=== PATIENT | female | born 1935 | race Caucasian/White ===

== ENCOUNTER 2018-07-18 03:31 | Emergency (ER) | payer MEDICARE ==
[2018-07-18] MEDS ORDERED: Metoclopramide HCl 10 MG/2 ML VIAL ONE (04:56)
[2018-07-18] MEDS ORDERED: Morphine 10 MG/ML VIAL ONE (04:56)
[2018-07-18 05:02] LABS: #Basophils 0.1 thou/uL (0.0-0.2); #Lymphocytes 1.9 thou/uL (1.20-3.40); #Monocytes 0.6 thou/uL (0.11-0.59); %Basophils 0.5 % (0.0-1.0); %Eosinophils 0.1 % (0.0-10.0); %Lymphocytes 13.3 % (21.0-51.0); %Monocytes 3.8 % (0.0-10.0); %Neutrophils 82.4 % (42.0-75.0); Mean Corpuscular HGB CONC 32.7 g/dL (32.0-36.0); Mean Corpuscular Hemoglobin 28.1 pg (27.0-31.0); Mean Corpuscular Volume 86.1 fL (78.0-98.0); Mean Platelet Volume 6.1 fL (7.4-10.4); Platelet Count 368 thou/uL (130-400); RBC Distribution Width 13.4 % (11.5-14.5); Red Blood Cell (RBC) Count 4.97 mill/uL (4.20-5.40); White Blood Cell (WBC) Count 14.6 thou/uL (4.8-10.8)
[2018-07-18 05:08] LABS: INR-International Normal Ratio 1.1; Prothrombin Time 14.2 SEC (12.0-14.7)
[2018-07-18 05:25] LABS: ALT (SGPT) 16 U/L (8-55); AST (SGOT) 18 U/L (5-34); Albumin 4.5 g/dL (3.4-4.8); Alkaline Phosphatase 52 U/L (40-150); Anion Gap 22 mmol/L (10-20); BUN (Urea Nitrogen) 21 mg/dL (9.8-20.1); Calc. Creatinine Clearance 0 mL/min (70-130); Calcium 10.3 mg/dL (7.8-10.44); Carbon Dioxide 21 mmol/L (23-31); Chloride 98 mmol/L (98-107); Estimated GFR-MDRD 67; Glucose 175 mg/dL (83-110); Potassium 3.9 mmol/L (3.5-5.1); Protein, Total 8.5 g/dL (6.0-8.3); Sodium 137 mmol/L (136-145)
[2018-07-18] MEDS ORDERED: Prochlorperazine 10 MG/2 ML VIAL ONE (06:09)
[2018-07-18] MEDS ORDERED: Proparacaine 0.5% Opth 15 ML BOT ONE (06:26)
[2018-07-18] MEDS ORDERED: acetaZOLAMIDE Sodium 500 mg Vial ONE (06:55)
[2018-07-18] MEDS ORDERED: TIMOLOL EYE DROP R EYE SCH (07:00)
[2018-07-18] MEDS ORDERED: APRACLONIDINE R EYE SCH (07:00)
[2018-07-18] MEDS ORDERED: Pilocarpine 2% Ophth Drops 15 ML BOT R EYE SCH (07:00)
[2018-07-18] MEDS ORDERED: ACETAZOLAMIDE 500 MG PO SCH (07:00)
[2018-07-18] MEDS ORDERED: Timolol 0.5% Ophth Soln 5 ml Bottle ONE (07:03)
[2018-07-18] MEDS ORDERED: Morphine 4 MG/ML VIAL ONE (07:23)
--- NOTE | 2018-07-18 07:45 | RAD ---
SINGLE VIEW CHEST: Date: 07/17/18 COMPARISON: 07/22/10. HISTORY: Headache, dizziness, vomiting. FINDINGS: Single view of the chest shows a normal sized cardiomediastinal silhouette. There is no evidence of c onsolidation, mass, or pleural effusion. The bones are unremarkable. IMPRESSION: No evidence of acute cardiopulmonary disease. POS: [facility]
--- NOTE | 2018-07-18 09:20 | CT ---
PRELIMINARY REPORT/[facility]/EMERGENTY AFTER-HOURS PROCEDURE CT Head Without Intravenous Contrast EXAM DATE/TIME: 07/18/2018 4:39 AM CLINICAL HISTORY: 83 years old, female; Pain; Headache; Headache not specified; Patient HX: Since yesterday patient has had vomitting, dizziness, blood pressure is high at the time of her er visit; Additional info: None available. TECHNIQUE: Axial computed tomography images of the head/brain without intravenous contrast. All CT scans at this facility use at least one of these dose optimization techniques: automated expos ure control; mA and/or kV adjustment per patient size (includes targeted exams where dose is matched to clinical indication); or iterative reconstruction. COMPARISON: No relevant prior studies available. FINDINGS: Brain: Normal. No hemorrhage. No significant white matter disease. No edema. Ventricles: Normal. No ventriculomegaly. Bones/joints: Normal. No acute fracture. Sinuses: Normal as visualized. No acute sinusitis. Mastoid air cells: Normal as visualized. No mastoid effusion. Soft tissues: Normal. IMPRESSION: No acute intracranial hemorrhage. Thank you for allowing us to participate in the care of your patient. Dictated and Authenticated by: Júnior De Anda MD 07/18/2018 5:36 AM Central Time ([place] & [place]) FINAL REPORT EMERGENCY AFTER HOURS CT BRAIN WITHOUT CONTRAST: Date: 07/18/18 FINDINGS/IMPRESSION: I agree with the findings and impression given in the preliminary report per [facility] physician. No evide nce of acute intracranial abnormality. POS: [facility]
== END 2018-07-18 09:50 | disposition short-term general hospital (02) ==
LOC: MADERS 03:31
DX: H40.211 Acute angle-closure glaucoma, right eye (principal); I10 Essential (primary) hypertension; M19.90 Unspecified osteoarthritis, unspecified site; E03.9 Hypothyroidism, unspecified; Z79.899 Other long term (current) drug therapy
CPT/HCPCS: 36415; 70450; 71045; 80053; 84484; 85025; 85610; 93005; 96361; 96365; 96375; 96376; J0780; J1120; J2270; J2765

== ENCOUNTER 2022-08-07 17:14 | Emergency (ER) | payer MEDICARE, OTHER ==
[~2022-08-07 17:14] MED LIST: Iopamidol 370 76% 125 ML VIAL FS ONE; Sodium Chloride 0.9% 100 ML BAG ONE
[2022-08-07] MEDS ORDERED: Dexamethasone 4 MG TAB ONE (18:21)
[2022-08-07] MEDS ORDERED: Meclizine HCl 25 MG TAB ONE (18:21)
[2022-08-07] MEDS ORDERED: Dexamethasone 10 MG/ML VIAL ONE (18:22)
[2022-08-07 18:35] LABS: #Basophils 0.1 thou/uL (0.0-0.2); #Lymphocytes 1.2 thou/uL (1.20-3.40); #Monocytes 0.9 thou/uL (0.11-0.59); #Neutrophils 15.9 thou/uL (1.40-6.50); %Basophils 0.4 % (0.0-1.0); %Lymphocytes 6.8 % (21.0-51.0); %Monocytes 4.8 % (0.0-10.0); %Neutrophils 88.1 % (42.0-75.0); Hemoglobin 13.1 g/dL (12.0-16.0); Mean Corpuscular HGB CONC 32.9 g/dL (32.0-36.0); Mean Corpuscular Hemoglobin 28.6 pg (27.0-31.0); Mean Corpuscular Volume 86.9 fl (78.0-98.0); Mean Platelet Volume 6.4 fL (7.4-10.4); Platelet Count 357 10x3/uL (130-400); RBC Distribution Width 12.6 % (11.5-14.5)
[2022-08-07 18:49] LABS: ALT (SGPT) 10 U/L (8-55); AST (SGOT) 16 U/L (5-34); Albumin 3.7 g/dL (3.4-4.8); Alkaline Phosphatase 58 U/L (40-110); Anion Gap 17 mmol/L (10-20); BUN (Urea Nitrogen) 18 mg/dL (9.8-20.1); Bilirubin, Total 0.8 mg/dL (0.2-1.2); Calc. Creatinine Clearance 0 mL/min (70-130); Calcium 9.3 mg/dL (7.8-10.44); Carbon Dioxide 24 mmol/L (23-31); Chloride 103 mmol/L (98-107); Estimated GFR 78; Globulin 3.8 g/dL (2.4-3.5); Glucose 144 mg/dL (83-110); Potassium 4.2 mmol/L (3.5-5.1); Protein, Total 7.5 g/dL (5.8-8.1); Sodium 140 mmol/L (136-145)
[2022-08-07] MEDS ORDERED: cefTRIAXone\\ROCEPHIN 2 GM VIAL ONE (19:31)
[2022-08-07 19:57] LABS: INR-International Normal Ratio 1.2; Prothrombin Time 15.2 sec (12.0-14.7)
[2022-08-07 20:15] LABS: Bilirubin Negative (Negative); Blood, Urine Moderate (Negative); Glucose, Urine (Dipstick) Negative (Negative); Ketone, Urine Trace mg/dL (Negative); Leukocyte Small (Negative); Nitrite Negative (Negative); Protein, Urine (Dipstick) 100 mg/dL (Neg-Trace); Urobilinogen 0.2 mg/dL (Less than 2)
[2022-08-07 20:19] LABS: Bacteria/HPF 3+ HPF (None Seen); Clarity Cloudy (Clear); Specific Gravity, Urine 1.025 (1.002-1.036)
[2022-08-07] MEDS ORDERED: Aspirin Chewable 81 MG TAB ONE (21:21)
[2022-08-07] MEDS ORDERED: Sodium Chloride 0.9% 2,000 ML ONE (21:21)
[2022-08-07 21:59] LABS: Lactic Acid 2.2 mmol/L (0.5-2.2)
== END 2022-08-08 01:37 | disposition short-term general hospital (02) ==
LOC: MADERS 17:14
DX: A41.9 Sepsis, unspecified organism (principal); I63.9 Cerebral infarction, unspecified; I10 Essential (primary) hypertension; E87.20 Acidosis, unspecified; N39.0 Urinary tract infection, site not specified; E03.9 Hypothyroidism, unspecified; Z79.899 Other long term (current) drug therapy
CPT/HCPCS: 36415; 70450; 70496; 70498; 71045; 80053; 81003; 81015; 82550; 83605; 84484; 85025; 85610; 85730; 87040; 87149; 93005; 96361; 96365; J0696; J1100; J3490; J7050; J8540; Q9967

== ENCOUNTER 2022-08-12 16:22 | Inpatient (IN) | payer MEDICARE ==
[2022-08-12] MEDS ORDERED: hydrALAZINE 25 MG TAB PO SCH (22:30)
[2022-08-12] MEDS ORDERED: Oxybutynin 5 MG TAB PO SCH (22:30)
[2022-08-12] MEDS ORDERED: Famotidine 20 MG TAB PO SCH (22:30)
[2022-08-12] MEDS ORDERED: Atorvastatin Calcium 40 MG TAB PO SCH (22:30)
[2022-08-12] MEDS ORDERED: Metoprolol Tartrate 50 MG TAB PO SCH (22:30)
[2022-08-12] MEDS: metroNIDAZOLE 250 MG TAB PO SCH (22:43)
[2022-08-12] MEDS: Acetaminophen 325 MG TAB PO PRN (22:44)
[2022-08-12] MEDS: Ondansetron ODT 4 MG TAB PO PRN (22:56)
[2022-08-12 23:16] VITALS: BMI 22.8
[2022-08-13] MEDS: Ondansetron ODT 4 MG TAB PO PRN ×2 (05:49→13:57)
[2022-08-13] MEDS: metroNIDAZOLE 250 MG TAB PO SCH ×3 (05:49→22:25)
[2022-08-13 05:58] LABS: ALT (SGPT) 17 U/L (8-55); AST (SGOT) 21 U/L (5-34); Albumin 3.1 g/dL (3.4-4.8); Alkaline Phosphatase 41 U/L (40-110); Anion Gap 13 mmol/L (10-20); BUN (Urea Nitrogen) 16 mg/dL (9.8-20.1); Bilirubin, Total 0.8 mg/dL (0.2-1.2); Calc. Creatinine Clearance 54 mL/min (70-130); Calcium 8.7 mg/dL (7.8-10.44); Carbon Dioxide 25 mmol/L (23-31); Chloride 102 mmol/L (98-107); Estimated GFR 79; Globulin 3.2 g/dL (2.4-3.5); Glucose 98 mg/dL (83-110); Potassium 3.9 mmol/L (3.5-5.1); Protein, Total 6.3 g/dL (5.8-8.1); Sodium 136 mmol/L (136-145)
[2022-08-13] MEDS ORDERED: Thyroid 30 MG TAB PO SCH ×2 (08:15→09:00)
[2022-08-13] MEDS: hydrALAZINE 25 MG TAB PO SCH ×4 (08:57→20:32)
[2022-08-13] MEDS: Famotidine 20 MG TAB PO SCH ×2 (08:58→20:32)
[2022-08-13] MEDS: Metoprolol Tartrate 50 MG TAB PO SCH ×2 (08:58→20:31)
[2022-08-13] MEDS: Aspirin Chewable 81 MG TAB PO SCH (08:59)
[2022-08-13] MEDS: Lisinopril 20 MG TAB PO SCH (08:59)
[2022-08-13] MEDS ORDERED: Oxybutynin 5 MG TAB PO SCH (09:00)
[2022-08-13] MEDS: Hydrochlorothiazide 25 MG TAB PO SCH (09:01)
[2022-08-13] MEDS ORDERED: Milk Of Magnesia 30 ML UDCUP PO PRN (09:35)
[2022-08-13] MEDS ORDERED: Meclizine HCl 25 MG TAB PO PRN (09:35)
[2022-08-13] MEDS ORDERED: Lantiseptic Ointment 130 GM JAR TOP SCH (09:45)
[2022-08-13] MEDS ORDERED: Meclizine HCl 25 MG TAB PO SCH (11:00)
[2022-08-13] MEDS: Meclizine HCl 25 MG TAB PO SCH ×2 (13:57→22:25)
[2022-08-13] MEDS: Acetaminophen 325 MG TAB PO PRN (17:03)
[2022-08-13] MEDS: Atorvastatin Calcium 40 MG TAB PO SCH (20:32)
[2022-08-13] MEDS: Lantiseptic Ointment 130 GM JAR TOP SCH (20:33)
[2022-08-14 05:29] LABS: #Basophils 0.2 thou/uL (0.0-0.2); #Eosinphils 0.6 thou/uL (0.0-0.7); #Lymphocytes 2.4 thou/uL (1.20-3.40); #Monocytes 1.4 thou/uL (0.11-0.59); #Neutrophils 10.5 thou/uL (1.40-6.50); %Basophils 1.2 % (0.0-1.0); %Eosinophils 3.9 % (0.0-10.0); %Lymphocytes 16.1 % (21.0-51.0); %Monocytes 9.4 % (0.0-10.0); %Neutrophils 69.4 % (42.0-75.0); Hemoglobin 13.9 g/dL (12.0-16.0); Mean Corpuscular HGB CONC 33.8 g/dL (32.0-36.0); Mean Corpuscular Volume 85.9 fl (78.0-98.0); Mean Platelet Volume 6.3 fL (7.4-10.4); Platelet Count 390 10x3/uL (130-400); RBC Distribution Width 12.9 % (11.5-14.5); White Blood Cell (WBC) Count 15.2 10x3/uL (4.8-10.8)
[2022-08-14] MEDS: Thyroid 30 MG TAB PO SCH (05:29)
[2022-08-14] MEDS: Meclizine HCl 25 MG TAB PO SCH ×3 (05:30→21:09)
[2022-08-14] MEDS: metroNIDAZOLE 250 MG TAB PO SCH ×3 (05:31→21:08)
[2022-08-14 05:50] LABS: ALT (SGPT) 21 U/L (8-55); AST (SGOT) 30 U/L (5-34); Albumin 3.3 g/dL (3.4-4.8); Alkaline Phosphatase 45 U/L (40-110); Anion Gap 15 mmol/L (10-20); BUN (Urea Nitrogen) 14 mg/dL (9.8-20.1); Bilirubin, Total 0.7 mg/dL (0.2-1.2); Calc. Creatinine Clearance 56 mL/min (70-130); Calcium 9.1 mg/dL (7.8-10.44); Carbon Dioxide 22 mmol/L (23-31); Chloride 101 mmol/L (98-107); Estimated GFR 82; Globulin 3.3 g/dL (2.4-3.5); Glucose 96 mg/dL (83-110); Potassium 3.9 mmol/L (3.5-5.1); Protein, Total 6.6 g/dL (5.8-8.1); Sodium 134 mmol/L (136-145)
[2022-08-14] MEDS: Ondansetron ODT 4 MG TAB PO PRN (07:33)
[2022-08-14] MEDS: hydrALAZINE 25 MG TAB PO SCH (07:33)
[2022-08-14] MEDS: Famotidine 20 MG TAB PO SCH ×2 (07:33→21:09)
[2022-08-14] MEDS: Lisinopril 20 MG TAB PO SCH (07:33)
[2022-08-14] MEDS: Metoprolol Tartrate 50 MG TAB PO SCH ×2 (07:34→21:09)
[2022-08-14] MEDS: Aspirin Chewable 81 MG TAB PO SCH (07:34)
[2022-08-14] MEDS: Hydrochlorothiazide 25 MG TAB PO SCH (07:34)
[2022-08-14] MEDS: Lantiseptic Ointment 130 GM JAR TOP SCH ×2 (07:35→21:10)
[2022-08-14] MEDS: Acetaminophen 325 MG TAB PO PRN (07:57)
[2022-08-14 08:57] LABS: RBC/HPF 0-3 HPF (0-3)
[2022-08-14 08:58] LABS: Bacteria/HPF Rare-Few HPF (None Seen); Squamous Epithelial 0-3 HPF (0-3)
[2022-08-14] MEDS ORDERED: Thyroid 30 MG TAB PO SCH (09:00)
[2022-08-14] MEDS: Nystatin 500,000 UNITS/5 ML UDCUP SSP SCH ×3 (13:55→21:08)
[2022-08-14] MEDS: Atorvastatin Calcium 40 MG TAB PO SCH (21:08)
[2022-08-15] MEDS: Meclizine HCl 25 MG TAB PO SCH ×3 (05:30→21:08)
[2022-08-15] MEDS: metroNIDAZOLE 250 MG TAB PO SCH (05:34)
[2022-08-15] MEDS: Thyroid 30 MG TAB PO SCH (05:36)
[2022-08-15] MEDS: Aspirin Chewable 81 MG TAB PO SCH (08:45)
[2022-08-15] MEDS: Famotidine 20 MG TAB PO SCH ×2 (08:46→21:12)
[2022-08-15] MEDS: hydrALAZINE 25 MG TAB PO SCH ×2 (08:46→21:12)
[2022-08-15] MEDS: Lisinopril 20 MG TAB PO SCH (08:47)
[2022-08-15] MEDS: Hydrochlorothiazide 25 MG TAB PO SCH (08:47)
[2022-08-15] MEDS: Metoprolol Tartrate 50 MG TAB PO SCH ×2 (08:48→21:10)
[2022-08-15] MEDS: Nystatin 500,000 UNITS/5 ML UDCUP SSP SCH ×4 (08:49→21:13)
[2022-08-15] MEDS: Lantiseptic Ointment 130 GM JAR TOP SCH ×2 (08:50→21:13)
[2022-08-15] MEDS: Acetaminophen 325 MG TAB PO PRN (11:47)
[2022-08-15] MEDS: Atorvastatin Calcium 40 MG TAB PO SCH (20:48)
[2022-08-16] MEDS: Meclizine HCl 25 MG TAB PO SCH ×3 (06:16→23:49)
[2022-08-16] MEDS: Thyroid 30 MG TAB PO SCH (06:17)
[2022-08-16] MEDS: Aspirin Chewable 81 MG TAB PO SCH (08:57)
[2022-08-16] MEDS: hydrALAZINE 25 MG TAB PO SCH ×2 (08:57→21:47)
[2022-08-16] MEDS: Metoprolol Tartrate 50 MG TAB PO SCH ×2 (08:57→21:47)
[2022-08-16] MEDS: Famotidine 20 MG TAB PO SCH ×2 (08:58→21:47)
[2022-08-16] MEDS: Hydrochlorothiazide 25 MG TAB PO SCH (08:58)
[2022-08-16] MEDS: Lisinopril 20 MG TAB PO SCH (08:58)
[2022-08-16] MEDS: Lantiseptic Ointment 130 GM JAR TOP SCH ×2 (08:59→21:48)
[2022-08-16] MEDS: Nystatin 500,000 UNITS/5 ML UDCUP SSP SCH ×4 (08:59→21:48)
[2022-08-16] MEDS ORDERED: FLU VACC QS2022-23(65YR UP)/PF 240 MCG/0.7 ML SYRINGE IM ONE (09:00)
[2022-08-16] MEDS: Atorvastatin Calcium 40 MG TAB PO SCH (21:49)
[2022-08-16] MEDS: Acetaminophen 325 MG TAB PO PRN (22:00)
[2022-08-17] MEDS: Thyroid 30 MG TAB PO SCH (06:23)
[2022-08-17] MEDS: Meclizine HCl 25 MG TAB PO SCH ×3 (06:23→21:00)
[2022-08-17] MEDS: Hydrochlorothiazide 25 MG TAB PO SCH (08:26)
[2022-08-17] MEDS: Metoprolol Tartrate 50 MG TAB PO SCH ×2 (08:27→20:57)
[2022-08-17] MEDS: Famotidine 20 MG TAB PO SCH ×2 (08:27→20:57)
[2022-08-17] MEDS: hydrALAZINE 25 MG TAB PO SCH ×2 (08:27→20:57)
[2022-08-17] MEDS: Aspirin Chewable 81 MG TAB PO SCH (08:28)
[2022-08-17] MEDS: Lantiseptic Ointment 130 GM JAR TOP SCH ×2 (08:28→20:59)
[2022-08-17] MEDS: Nystatin 500,000 UNITS/5 ML UDCUP SSP SCH ×4 (08:29→21:09)
[2022-08-17] MEDS: Lisinopril 20 MG TAB PO SCH (08:29)
[2022-08-17] MEDS: Loratadine 10 MG TAB PO PRN (15:10)
[2022-08-17] MEDS: Atorvastatin Calcium 40 MG TAB PO SCH (20:57)
[2022-08-18] MEDS: HYDROcodone/Acetaminophen 5/325 mg Tablet PO PRN (03:29)
[2022-08-18] MEDS: Meclizine HCl 25 MG TAB PO SCH ×4 (05:08→22:27)
[2022-08-18] MEDS: Thyroid 30 MG TAB PO SCH (05:08)
[2022-08-18] MEDS: Famotidine 20 MG TAB PO SCH ×3 (08:19→22:28)
[2022-08-18] MEDS: Aspirin Chewable 81 MG TAB PO SCH (08:19)
[2022-08-18] MEDS: Metoprolol Tartrate 50 MG TAB PO SCH ×3 (08:19→22:29)
[2022-08-18] MEDS: Nystatin 500,000 UNITS/5 ML UDCUP SSP SCH ×5 (08:19→22:29)
[2022-08-18] MEDS: hydrALAZINE 25 MG TAB PO SCH ×3 (08:19→22:28)
[2022-08-18] MEDS: Lantiseptic Ointment 130 GM JAR TOP SCH ×2 (08:20→21:21)
[2022-08-18] MEDS: Hydrochlorothiazide 25 MG TAB PO SCH (08:20)
[2022-08-18] MEDS: Lisinopril 20 MG TAB PO SCH (08:20)
[2022-08-18] MEDS: Acetaminophen 325 MG TAB PO PRN (08:24)
[2022-08-18] MEDS: Atorvastatin Calcium 40 MG TAB PO SCH ×2 (21:20→22:28)
[2022-08-19] MEDS: Meclizine HCl 25 MG TAB PO SCH ×3 (05:37→21:00)
[2022-08-19] MEDS: Thyroid 30 MG TAB PO SCH (05:37)
[2022-08-19] MEDS: Famotidine 20 MG TAB PO SCH ×2 (08:05→20:48)
[2022-08-19] MEDS: Metoprolol Tartrate 50 MG TAB PO SCH ×2 (08:05→20:46)
[2022-08-19] MEDS: Lisinopril 20 MG TAB PO SCH (08:05)
[2022-08-19] MEDS: Hydrochlorothiazide 25 MG TAB PO SCH (08:06)
[2022-08-19] MEDS: Aspirin Chewable 81 MG TAB PO SCH (08:06)
[2022-08-19] MEDS: hydrALAZINE 25 MG TAB PO SCH ×2 (08:06→20:47)
[2022-08-19] MEDS: Lantiseptic Ointment 130 GM JAR TOP SCH ×2 (08:07→20:48)
[2022-08-19] MEDS: Nystatin 500,000 UNITS/5 ML UDCUP SSP SCH ×4 (08:08→20:45)
[2022-08-19] MEDS: Loratadine 10 MG TAB PO PRN ×2 (08:08→20:46)
[2022-08-19] MEDS: Acetaminophen 325 MG TAB PO PRN (16:35)
[2022-08-19] MEDS: Atorvastatin Calcium 40 MG TAB PO SCH (20:48)
[2022-08-20] MEDS: Thyroid 30 MG TAB PO SCH (05:56)
[2022-08-20] MEDS: Meclizine HCl 25 MG TAB PO SCH ×3 (05:56→22:00)
[2022-08-20] MEDS: Lisinopril 20 MG TAB PO SCH (09:00)
[2022-08-20] MEDS: Hydrochlorothiazide 25 MG TAB PO SCH (09:01)
[2022-08-20] MEDS: Nystatin 500,000 UNITS/5 ML UDCUP SSP SCH ×4 (09:01→20:07)
[2022-08-20] MEDS: Famotidine 20 MG TAB PO SCH ×2 (09:01→20:07)
[2022-08-20] MEDS: hydrALAZINE 25 MG TAB PO SCH ×2 (09:01→20:07)
[2022-08-20] MEDS: Aspirin Chewable 81 MG TAB PO SCH (09:01)
[2022-08-20] MEDS: Metoprolol Tartrate 50 MG TAB PO SCH ×2 (09:02→20:07)
[2022-08-20] MEDS: Lantiseptic Ointment 130 GM JAR TOP SCH ×2 (09:06→20:34)
[2022-08-20] MEDS: Atorvastatin Calcium 40 MG TAB PO SCH (20:07)
[2022-08-20] MEDS: Loratadine 10 MG TAB PO PRN (20:11)
[2022-08-21] MEDS: Thyroid 30 MG TAB PO SCH (06:06)
[2022-08-21] MEDS: Meclizine HCl 25 MG TAB PO SCH ×3 (06:06→22:31)
[2022-08-21] MEDS: Aspirin Chewable 81 MG TAB PO SCH (10:07)
[2022-08-21] MEDS: Metoprolol Tartrate 50 MG TAB PO SCH ×2 (10:07→22:14)
[2022-08-21] MEDS: Famotidine 20 MG TAB PO SCH ×2 (10:07→22:31)
[2022-08-21] MEDS: Nystatin 500,000 UNITS/5 ML UDCUP SSP SCH ×3 (10:08→14:00)
[2022-08-21] MEDS: hydrALAZINE 25 MG TAB PO SCH ×3 (10:08→22:13)
[2022-08-21] MEDS: Hydrochlorothiazide 25 MG TAB PO SCH (10:09)
[2022-08-21] MEDS: Lisinopril 20 MG TAB PO SCH ×2 (10:09→14:23)
[2022-08-21] MEDS: Acetaminophen 325 MG TAB PO PRN (13:54)
[2022-08-21] MEDS: Lantiseptic Ointment 130 GM JAR TOP SCH ×2 (13:58→22:31)
[2022-08-21] MEDS: Atorvastatin Calcium 40 MG TAB PO SCH (21:06)
[2022-08-22] MEDS: Meclizine HCl 25 MG TAB PO SCH ×3 (06:39→21:08)
[2022-08-22] MEDS: Thyroid 30 MG TAB PO SCH (07:03)
[2022-08-22] MEDS: hydrALAZINE 25 MG TAB PO SCH (08:54)
[2022-08-22] MEDS: Hydrochlorothiazide 25 MG TAB PO SCH (08:55)
[2022-08-22] MEDS: Famotidine 20 MG TAB PO SCH ×2 (08:56→20:32)
[2022-08-22] MEDS: Aspirin Chewable 81 MG TAB PO SCH (08:56)
[2022-08-22] MEDS: Lisinopril 20 MG TAB PO SCH (08:56)
[2022-08-22] MEDS: Metoprolol Tartrate 50 MG TAB PO SCH ×2 (08:57→20:32)
[2022-08-22] MEDS: Lantiseptic Ointment 130 GM JAR TOP SCH ×2 (08:59→20:36)
[2022-08-22] MEDS: Loratadine 10 MG TAB PO PRN (09:01)
[2022-08-22] MEDS ORDERED: Clotrimazole 1% Cream 15 GM TUBE TOP SCH (09:45)
[2022-08-22] MEDS: Atorvastatin Calcium 40 MG TAB PO SCH (20:31)
[2022-08-22] MEDS: Clotrimazole 1% Cream 15 GM TUBE TOP SCH (20:36)
[2022-08-23] MEDS: Meclizine HCl 25 MG TAB PO SCH ×3 (05:48→21:00)
[2022-08-23] MEDS: Thyroid 30 MG TAB PO SCH (05:48)
[2022-08-23] MEDS: Acetaminophen 325 MG TAB PO PRN (05:55)
[2022-08-23] MEDS: Aspirin Chewable 81 MG TAB PO SCH (09:00)
[2022-08-23] MEDS: Lisinopril 20 MG TAB PO SCH (09:00)
[2022-08-23] MEDS: Famotidine 20 MG TAB PO SCH ×2 (09:00→20:41)
[2022-08-23] MEDS: Metoprolol Tartrate 50 MG TAB PO SCH ×2 (09:01→20:42)
[2022-08-23] MEDS: Lantiseptic Ointment 130 GM JAR TOP SCH ×2 (09:03→20:43)
[2022-08-23] MEDS: Clotrimazole 1% Cream 15 GM TUBE TOP SCH ×2 (09:03→20:43)
[2022-08-23] MEDS: Loratadine 10 MG TAB PO PRN (09:07)
[2022-08-23] MEDS: Atorvastatin Calcium 40 MG TAB PO SCH (20:41)
[2022-08-24] MEDS: Meclizine HCl 25 MG TAB PO SCH ×5 (05:21→21:04)
[2022-08-24] MEDS: Thyroid 30 MG TAB PO SCH (05:21)
[2022-08-24] MEDS: Metoprolol Tartrate 50 MG TAB PO SCH ×2 (08:28→21:04)
[2022-08-24] MEDS: Aspirin Chewable 81 MG TAB PO SCH (08:28)
[2022-08-24] MEDS: Famotidine 20 MG TAB PO SCH ×2 (08:28→21:04)
[2022-08-24] MEDS: Lisinopril 20 MG TAB PO SCH (08:28)
[2022-08-24] MEDS: Lantiseptic Ointment 130 GM JAR TOP SCH ×2 (08:28→21:03)
[2022-08-24] MEDS: Clotrimazole 1% Cream 15 GM TUBE TOP SCH ×2 (08:29→21:03)
[2022-08-24] MEDS: HYDROcodone/Acetaminophen 5/325 mg Tablet PO PRN (15:18)
[2022-08-24 18:15] LABS: Bilirubin Small (Negative); Blood, Urine Large (Negative); CAUTI Indications for Culture Acute Hematuria; Glucose, Urine (Dipstick) Negative (Negative); Ketone, Urine Negative (Negative); Leukocyte Large (Negative); Nitrite Positive (Negative); Protein, Urine (Dipstick) 100 mg/dL (Neg-Trace); Urobilinogen 0.2 mg/dL (Less than 2); pH, Urine 5.5 (5.0-9.0)
[2022-08-24 18:19] LABS: Clarity Cloudy (Clear)
[2022-08-24 18:29] LABS: Bacteria/HPF 1+ HPF (None Seen); RBC/HPF Greater than 50 HPF (0-3); Squamous Epithelial 0-3 HPF (0-3); WBC/HPF Greater Than 50 HPF (0-3)
[2022-08-24 19:15] LABS: Anion Gap 17 mmol/L (10-20); BUN (Urea Nitrogen) 20 mg/dL (9.8-20.1); Calc. Creatinine Clearance 46 mL/min (70-130); Calcium 9.1 mg/dL (7.8-10.44); Carbon Dioxide 21 mmol/L (23-31); Chloride 101 mmol/L (98-107); Estimated GFR 66; Glucose 113 mg/dL (83-110); Potassium 5.1 mmol/L (3.5-5.1); Sodium 134 mmol/L (136-145)
[2022-08-25] MEDS ORDERED: Nitrofurantoin Monohyd/M-Cryst 100 MG CAP PO SCH (02:15)
[2022-08-25] MEDS ORDERED: Phenazopyridine HCl 95 MG TAB PO SCH (02:15)
[2022-08-25] MEDS: Thyroid 30 MG TAB PO SCH (05:17)
[2022-08-25] MEDS: Meclizine HCl 25 MG TAB PO SCH ×3 (05:17→20:56)
[2022-08-25] MEDS: Phenazopyridine HCl 95 MG TAB PO SCH ×3 (08:30→20:55)
[2022-08-25] MEDS: Famotidine 20 MG TAB PO SCH ×2 (08:30→20:54)
[2022-08-25] MEDS: Nitrofurantoin Monohyd/M-Cryst 100 MG CAP PO SCH ×2 (08:31→20:54)
[2022-08-25] MEDS: Metoprolol Tartrate 50 MG TAB PO SCH ×2 (08:31→20:54)
[2022-08-25] MEDS: Clotrimazole 1% Cream 15 GM TUBE TOP SCH ×2 (08:31→20:56)
[2022-08-25] MEDS: Lisinopril 20 MG TAB PO SCH (08:31)
[2022-08-25] MEDS: Aspirin Chewable 81 MG TAB PO SCH (08:31)
[2022-08-25] MEDS: Lantiseptic Ointment 130 GM JAR TOP SCH ×2 (08:32→20:56)
[2022-08-25] MEDS: Acetaminophen 325 MG TAB PO PRN (08:38)
[2022-08-25] MEDS: Loratadine 10 MG TAB PO PRN (08:39)
[2022-08-25] MEDS: HYDROcodone/Acetaminophen 5/325 mg Tablet PO PRN (13:30)
[2022-08-26] MEDS: Meclizine HCl 25 MG TAB PO SCH ×3 (05:38→21:02)
[2022-08-26] MEDS: Acetaminophen 325 MG TAB PO PRN (05:38)
[2022-08-26] MEDS: Thyroid 30 MG TAB PO SCH (05:38)
[2022-08-26] MEDS: Lisinopril 20 MG TAB PO SCH (08:21)
[2022-08-26] MEDS: Aspirin Chewable 81 MG TAB PO SCH (08:21)
[2022-08-26] MEDS: Nitrofurantoin Monohyd/M-Cryst 100 MG CAP PO SCH ×2 (08:21→20:45)
[2022-08-26] MEDS: Clotrimazole 1% Cream 15 GM TUBE TOP SCH ×2 (08:22→20:47)
[2022-08-26] MEDS: Famotidine 20 MG TAB PO SCH ×2 (08:22→20:45)
[2022-08-26] MEDS: Phenazopyridine HCl 95 MG TAB PO SCH ×2 (08:22→14:44)
[2022-08-26] MEDS: Metoprolol Tartrate 50 MG TAB PO SCH ×2 (08:22→20:45)
[2022-08-26] MEDS: Lantiseptic Ointment 130 GM JAR TOP SCH ×2 (08:22→20:46)
[2022-08-26] MEDS: Loratadine 10 MG TAB PO PRN (20:45)
[2022-08-27] MEDS: Thyroid 30 MG TAB PO SCH (05:45)
[2022-08-27] MEDS: Meclizine HCl 25 MG TAB PO SCH (05:46)
[2022-08-27] MEDS ORDERED: Meclizine HCl 25 MG TAB PO PRN (08:00)
[2022-08-27] MEDS: Acetaminophen 325 MG TAB PO PRN (08:47)
[2022-08-27] MEDS: Metoprolol Tartrate 50 MG TAB PO SCH ×2 (08:48→21:07)
[2022-08-27] MEDS: Nitrofurantoin Monohyd/M-Cryst 100 MG CAP PO SCH ×2 (08:48→21:07)
[2022-08-27] MEDS: Famotidine 20 MG TAB PO SCH ×2 (08:48→21:04)
[2022-08-27] MEDS: Aspirin Chewable 81 MG TAB PO SCH (08:48)
[2022-08-27] MEDS: Lisinopril 20 MG TAB PO SCH (08:48)
[2022-08-27] MEDS: Clotrimazole 1% Cream 15 GM TUBE TOP SCH ×2 (08:50→21:04)
[2022-08-27] MEDS: Lantiseptic Ointment 130 GM JAR TOP SCH ×2 (08:51→21:06)
[2022-08-28] MEDS: Thyroid 30 MG TAB PO SCH (06:00)
[2022-08-28] MEDS: Nitrofurantoin Monohyd/M-Cryst 100 MG CAP PO SCH ×2 (08:36→20:54)
[2022-08-28] MEDS: Aspirin Chewable 81 MG TAB PO SCH (08:36)
[2022-08-28] MEDS: Lisinopril 20 MG TAB PO SCH (08:36)
[2022-08-28] MEDS: Metoprolol Tartrate 50 MG TAB PO SCH ×2 (08:37→20:53)
[2022-08-28] MEDS: Famotidine 20 MG TAB PO SCH ×2 (08:40→20:53)
[2022-08-28] MEDS: Clotrimazole 1% Cream 15 GM TUBE TOP SCH ×2 (09:53→20:54)
[2022-08-28] MEDS: Lantiseptic Ointment 130 GM JAR TOP SCH ×2 (09:53→20:55)
[2022-08-29] MEDS: Thyroid 30 MG TAB PO SCH (05:20)
[2022-08-29] MEDS: Acetaminophen 325 MG TAB PO PRN (08:19)
[2022-08-29] MEDS: Famotidine 20 MG TAB PO SCH ×2 (08:19→20:48)
[2022-08-29] MEDS: Aspirin Chewable 81 MG TAB PO SCH (08:19)
[2022-08-29] MEDS: Lisinopril 20 MG TAB PO SCH (08:19)
[2022-08-29] MEDS: Nitrofurantoin Monohyd/M-Cryst 100 MG CAP PO SCH ×2 (08:19→20:48)
[2022-08-29] MEDS: Metoprolol Tartrate 50 MG TAB PO SCH ×2 (08:19→20:49)
[2022-08-29] MEDS: Clotrimazole 1% Cream 15 GM TUBE TOP SCH ×2 (08:56→20:47)
[2022-08-29] MEDS: Lantiseptic Ointment 130 GM JAR TOP SCH ×2 (08:57→20:47)
[2022-08-29] MEDS: Loratadine 10 MG TAB PO PRN (20:46)
[2022-08-30] MEDS: Thyroid 30 MG TAB PO SCH (05:01)
[2022-08-30] MEDS: Famotidine 20 MG TAB PO SCH ×2 (08:34→20:53)
[2022-08-30] MEDS: Aspirin Chewable 81 MG TAB PO SCH (08:34)
[2022-08-30] MEDS: Metoprolol Tartrate 50 MG TAB PO SCH ×2 (08:35→20:53)
[2022-08-30] MEDS: Nitrofurantoin Monohyd/M-Cryst 100 MG CAP PO SCH ×2 (08:35→20:53)
[2022-08-30] MEDS: Lisinopril 20 MG TAB PO SCH (08:35)
[2022-08-30] MEDS: Lantiseptic Ointment 130 GM JAR TOP SCH ×2 (08:35→20:54)
[2022-08-30] MEDS: Clotrimazole 1% Cream 15 GM TUBE TOP SCH ×2 (08:36→20:56)
[2022-08-30] MEDS: Loratadine 10 MG TAB PO PRN (08:42)
[2022-08-31] MEDS: Thyroid 30 MG TAB PO SCH (06:11)
[2022-08-31] MEDS: Clotrimazole 1% Cream 15 GM TUBE TOP SCH ×2 (08:50→20:40)
[2022-08-31] MEDS: Aspirin Chewable 81 MG TAB PO SCH (08:51)
[2022-08-31] MEDS: Nitrofurantoin Monohyd/M-Cryst 100 MG CAP PO SCH (08:51)
[2022-08-31] MEDS: Metoprolol Tartrate 50 MG TAB PO SCH ×2 (08:51→20:40)
[2022-08-31] MEDS: Famotidine 20 MG TAB PO SCH (08:51)
[2022-08-31] MEDS: Loratadine 10 MG TAB PO PRN (08:51)
[2022-08-31] MEDS: Lisinopril 20 MG TAB PO SCH (08:51)
[2022-08-31] MEDS: Lantiseptic Ointment 130 GM JAR TOP SCH ×2 (08:52→20:41)
[2022-09-01] MEDS: Thyroid 30 MG TAB PO SCH (05:41)
[2022-09-01] MEDS: Famotidine 20 MG TAB PO SCH (08:48)
[2022-09-01] MEDS: Metoprolol Tartrate 50 MG TAB PO SCH ×2 (08:49→20:27)
[2022-09-01] MEDS: Lisinopril 20 MG TAB PO SCH (08:49)
[2022-09-01] MEDS: Aspirin Chewable 81 MG TAB PO SCH (08:49)
[2022-09-01] MEDS: Lantiseptic Ointment 130 GM JAR TOP SCH ×2 (08:49→20:26)
[2022-09-01] MEDS: Clotrimazole 1% Cream 15 GM TUBE TOP SCH ×2 (08:49→20:26)
[2022-09-01] MEDS: Loratadine 10 MG TAB PO PRN (08:49)
[2022-09-02] MEDS: Thyroid 30 MG TAB PO SCH (05:25)
[2022-09-02] MEDS: Aspirin Chewable 81 MG TAB PO SCH (08:09)
[2022-09-02] MEDS: Lisinopril 20 MG TAB PO SCH (08:09)
[2022-09-02] MEDS: Metoprolol Tartrate 50 MG TAB PO SCH ×2 (08:09→20:42)
[2022-09-02] MEDS: Famotidine 20 MG TAB PO SCH (08:09)
[2022-09-02] MEDS: Lantiseptic Ointment 130 GM JAR TOP SCH ×2 (08:09→20:43)
[2022-09-02] MEDS: Clotrimazole 1% Cream 15 GM TUBE TOP SCH ×2 (08:10→20:43)
[2022-09-02] MEDS: Loratadine 10 MG TAB PO PRN (20:42)
[2022-09-03] MEDS: Thyroid 30 MG TAB PO SCH (05:32)
[2022-09-03] MEDS: Metoprolol Tartrate 50 MG TAB PO SCH ×2 (08:38→20:17)
[2022-09-03] MEDS: Famotidine 20 MG TAB PO SCH (08:38)
[2022-09-03] MEDS: Aspirin Chewable 81 MG TAB PO SCH (08:38)
[2022-09-03] MEDS: Clotrimazole 1% Cream 15 GM TUBE TOP SCH ×2 (08:38→20:16)
[2022-09-03] MEDS: Lisinopril 20 MG TAB PO SCH (08:38)
[2022-09-03] MEDS: Lantiseptic Ointment 130 GM JAR TOP SCH ×2 (08:38→20:16)
[2022-09-03] MEDS: Loratadine 10 MG TAB PO PRN (08:42)
[2022-09-04] MEDS: Thyroid 30 MG TAB PO SCH (05:44)
[2022-09-04] MEDS: Aspirin Chewable 81 MG TAB PO SCH (08:32)
[2022-09-04] MEDS: Lisinopril 20 MG TAB PO SCH (08:32)
[2022-09-04] MEDS: Famotidine 20 MG TAB PO SCH (08:33)
[2022-09-04] MEDS: Lantiseptic Ointment 130 GM JAR TOP SCH (08:33)
[2022-09-04] MEDS: Metoprolol Tartrate 50 MG TAB PO SCH (08:33)
[2022-09-04] MEDS: Loratadine 10 MG TAB PO PRN (08:33)
[2022-09-04] MEDS: Clotrimazole 1% Cream 15 GM TUBE TOP SCH (08:33)
[2022-09-04 08:34] VITALS: BP 132/79
[2022-09-04 08:35] VITALS: TEMP 97.9
== END 2022-09-04 11:05 | disposition home or self-care (01) | DRG 56 ==
LOC: MADMS 19:49
PROVIDERS: ADMIT Family Medicine; ATTEND Family Medicine
DX: I69.398 Other sequelae of cerebral infarction (principal); G93.6 Cerebral edema; J69.0 Pneumonitis due to inhalation of food and vomit; I50.32 Chronic diastolic (congestive) heart failure; N39.0 Urinary tract infection, site not specified; R53.1 Weakness; I69.391 Dysphagia following cerebral infarction; Z66 Do not resuscitate; E03.9 Hypothyroidism, unspecified; I11.0 Hypertensive heart disease with heart failure; K21.9 Gastro-esophageal reflux disease without esophagitis; M19.90 Unspecified osteoarthritis, unspecified site; I34.2 Nonrheumatic mitral (valve) stenosis; R33.9 Retention of urine, unspecified; R53.81 Other malaise; F03.90 Unspecified dementia, unspecified severity, without behavioral disturbance, psychotic disturbance, mood disturbance, and anxiety; Z90.49 Acquired absence of other specified parts of digestive tract; Z90.89 Acquired absence of other organs; Z88.1 Allergy status to other antibiotic agents; Z88.8 Allergy status to other drugs, medicaments and biological substances; Z90.710 Acquired absence of both cervix and uterus; Z79.82 Long term (current) use of aspirin; Z79.899 Other long term (current) drug therapy
CPT/HCPCS: 36415; 80053; 81001; 81015; 82550; 84443; 85025; 87077; 87086; 87186; 87811; Q0162

== ENCOUNTER 2022-10-28 05:31 | Emergency (ER) | payer MEDICARE ==
[2022-10-28 06:08] LABS: #Basophils 0.1 thou/uL (0.0-0.2); #Eosinphils 0.1 thou/uL (0.0-0.7); #Lymphocytes 1.6 thou/uL (1.20-3.40); #Monocytes 1.3 thou/uL (0.11-0.59); %Eosinophils 0.7 % (0.0-10.0); %Lymphocytes 11.1 % (21.0-51.0); %Neutrophils 78.3 % (42.0-75.0); Hemoglobin 10.9 g/dL (12.0-16.0); Mean Corpuscular HGB CONC 32.4 g/dL (32.0-36.0); Mean Corpuscular Hemoglobin 27.9 pg (27.0-31.0); Platelet Count 429 10x3/uL (130-400); RBC Distribution Width 14.3 % (11.5-14.5); Red Blood Cell (RBC) Count 3.91 mill/uL (4.20-5.40); White Blood Cell (WBC) Count 14.1 10x3/uL (4.8-10.8)
[2022-10-28] MEDS ORDERED: Ondansetron PF 4 MG/2 ML Vial ONE (06:11)
[2022-10-28] MEDS ORDERED: Sodium Chloride 0.9% 1,000 ML ONE (06:11)
[2022-10-28 06:12] LABS: INR-International Normal Ratio 1.2
[2022-10-28 06:13] LABS: PTT 28.9 sec (22.9-36.1)
[2022-10-28 06:26] LABS: Bilirubin Negative (Negative); Blood, Urine Trace (Negative); Clarity Clear (Clear); Glucose, Urine (Dipstick) Negative (Negative); Ketone, Urine 80 mg/dL (Negative); Leukocyte Negative (Negative); Nitrite Negative (Negative); Protein, Urine (Dipstick) Negative (Neg-Trace); Specific Gravity, Urine 1.025 (1.005-1.030); Urobilinogen 0.2 mg/dL (Less than 2)
[2022-10-28 06:29] LABS: Bacteria/HPF Rare-Few HPF (None Seen); RBC/HPF 0-3 HPF (0-3); Squamous Epithelial 0-3 HPF (0-3); WBC/HPF 0-3 HPF (0-3)
[2022-10-28 06:46] LABS: ALT (SGPT) 12 U/L (8-55); AST (SGOT) 14 U/L (5-34); Albumin 3.7 g/dL (3.4-4.8); Alkaline Phosphatase 58 U/L (40-110); Anion Gap 17 mmol/L (10-20); BUN (Urea Nitrogen) 10 mg/dL (9.8-20.1); Bilirubin, Total 2.3 mg/dL (0.2-1.2); Calc. Creatinine Clearance 0 mL/min (70-130); Carbon Dioxide 21 mmol/L (23-31); Chloride 107 mmol/L (98-107); Estimated GFR 84; Globulin 3.1 g/dL (2.4-3.5); Glucose 121 mg/dL (83-110); Potassium 3.6 mmol/L (3.5-5.1); Protein, Total 6.8 g/dL (5.8-8.1); Sodium 141 mmol/L (136-145)
[2022-10-28 06:48] LABS: Prothrombin Time 15.3 sec (12.0-14.7)
[2022-10-28 07:04] LABS: CKMB 1.8 ng/mL (0-6.6)
[2022-10-28] MEDS ORDERED: Aspirin 325 MG TAB ONE (07:15)
[2022-10-28 10:45] LABS: CKMB 1.8 ng/mL (0-6.6)
== END 2022-10-28 12:06 | disposition short-term general hospital (02) ==
LOC: MADERS 05:31
DX: R42 Dizziness and giddiness (principal); R00.0 Tachycardia, unspecified; D72.829 Elevated white blood cell count, unspecified; E03.9 Hypothyroidism, unspecified; I10 Essential (primary) hypertension; Z79.899 Other long term (current) drug therapy
CPT/HCPCS: 51701; 70450; 80053; 81003; 81015; 82553; 83605; 84484; 85025; 85610; 85730; 93005; 96361; 96374; J2405; J7050